=== PATIENT | female | born 1985 | race Caucasian/White ===

== ENCOUNTER 2016-08-05 00:09 | Emergency (ER) | payer OTHER, MEDICAID ==
[~2016-08-05] VITALS: Ht 167.6 cm; Wt 75.0 kg
[~2016-08-05 00:09] MED LIST: FERR325T PO; IBUP-232 PO; LABE100T2 PO; SELEPAK; SENN1TAB PO
[2016-08-05] MEDS ORDERED: SODIUM CHLORIDE 0.9% FLUSH 10 ML FLUSH IVF PRN (00:15)
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
[2016-08-05] MEDS ORDERED: SODIUM CHLOR 0.9% 1000 ML INJ 1,000 ML IV ONE (00:30)
[2016-08-05 00:41] VITALS: BP 121/92; PULSE 89; RESP 16; TEMP 98.4; O2SAT 99
[2016-08-05 00:44] VITALS: O2SAT 99
[2016-08-05 00:45] LABS: AUTOMATED NEUTROPHIL # 2.2 TH/MM3 (1.8-7.7); BASOPHIL % 0.7 % (0.0-2.0); EOSINOPHIL # 0.2 TH/MM3 (0-0.4); EOSINOPHIL % 2.9 % (0.0-4.0); HEMATOCRIT 39.7 % (35.0-46.0); HEMO FLAGS DIFF FINAL; MEAN CORPUSCULAR HEMOGLOBIN 29.7 PG (27.0-34.0); MEAN CORPUSCULAR HGB CONC 32.3 % (32.0-36.0); MONO % 7.7 % (0.0-8.0); NEUT % 37.7 % (16.0-70.0); PLATELET COUNT 247 TH/MM3 (150-450); RED BLOOD COUNT 4.32 MIL/MM3 (4.00-5.30); RED CELL DISTRIBUTION WIDTH 17.3 % (11.6-17.2); WHITE BLOOD COUNT 5.9 TH/MM3 (4.0-11.0)
[2016-08-05 00:59] LABS: APTT (PATIENT) 29.4 SEC (24.3-30.1); PROTHROMBIN TIME - PATIENT 11.5 SEC (9.8-11.6)
[2016-08-05 01:10] LABS: ANION GAP 6 MEQ/L (5-15); BLOOD UREA NITROGEN 4 MG/DL (7-18); CHLORIDE 108 MEQ/L (98-107); GLOMERULAR FILTRATION RATE 102 ML/MIN (>89); POTASSIUM 3.3 MEQ/L (3.5-5.1); SODIUM (NA) 146 MEQ/L (136-145)
[2016-08-05 01:15] LABS: BETA HCG QUANT LESS THAN 1 MIU/ML (0-5)
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
[2016-08-05 06:35] VITALS: BP 105/64; PULSE 91; RESP 16; TEMP 97.9; O2SAT 100
[2016-08-05 08:00] VITALS: BP 122/77; TEMP 97.8
== END 2016-08-05 08:00 | disposition home or self-care (01) ==
LOC: NEPE 00:09
DX: F10.120 Alcohol abuse with intoxication, uncomplicated (principal); F17.210 Nicotine dependence, cigarettes, uncomplicated; E04.8 Other specified nontoxic goiter; V47.0XXA Car driver injured in collision with fixed or stationary object in nontraffic accident, initial encounter; Y90.8 Blood alcohol level of 240 mg/100 ml or more
CPT/HCPCS: 70450; 72125; 80048; 80307; 84702; 85025; 85610; 85730; 96360; 96361; 99285; J7030

== ENCOUNTER 2016-09-06 20:16 | Emergency (ER) | payer MEDICAID, OTHER ==
[~2016-09-06] VITALS: Ht 157.5 cm; Wt 70.0 kg
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
[2016-09-06] MEDS ORDERED: diphenhydrAMINE HCL 50 MG/ML VIAL IM ONE (20:45)
[2016-09-06] MEDS ORDERED: HALOPERIDOL LACTATE 5 MG/ML AMP IM ONE (20:45)
[2016-09-06 20:53] VITALS: BP 116/86; PULSE 80; RESP 16; TEMP 98.2; O2SAT 99
[2016-09-06 22:30] VITALS: BP 98/72; PULSE 65; RESP 16; O2SAT 99
[2016-09-06 23:45] VITALS: BP 98/72; PULSE 74; RESP 14; O2SAT 98
== END 2016-09-07 06:54 | disposition home or self-care (01) ==
LOC: NEPD 20:16
DX: F10.129 Alcohol abuse with intoxication, unspecified (principal); S00.83XA Contusion of other part of head, initial encounter; Y04.2XXA Assault by strike against or bumped into by another person, initial encounter
CPT/HCPCS: 99282; J1200; J1630